=== PATIENT | female | born 1985 | race African-American/Black ===

== ENCOUNTER 2016-08-19 22:39 | Emergency (ER) | payer OTHER ==
[~2016-08-19] VITALS: Ht 172.7 cm; Wt 95.5 kg
[2016-08-20] MEDS ORDERED: ACETAMINOPHEN 500 MG TABLET PO ONE (01:45)
[2016-08-20] MEDS ORDERED: CefTRIAXone SODIUM 1 GM/VIAL IM ONE (01:45)
[2016-08-20] MEDS ORDERED: LIDOCAINE HCL/PF 1% 2 ML VIAL IM ONE (01:45)
[2016-08-20 01:53] VITALS: BP 129/89
== END 2016-08-20 02:01 | disposition home or self-care (01) ==
LOC: EMS 22:41
DX: N61.0 Mastitis without abscess (principal)
CPT/HCPCS: 81025; 96372; 99284; J0696; J3490

== ENCOUNTER 2017-12-29 14:30 | Observation (INO) | payer OTHER ==
[~2017-12-29] VITALS: Ht 170.2 cm; Wt 94.3 kg
[2017-12-29 19:06] VITALS: BP 109/65
[2017-12-29 19:52] LABS: APPEARANCE,URINE CLEAR (CLEAR); BILIRUBIN,URINE NEGATIVE (NEGATIVE); GLUCOSE, URINE (UA) >=1000 mg/dL (NEGATIVE); KETONES,URINE NEGATIVE (NEGATIVE); LEUKOCYTE ESTERASE ,URINE NEGATIVE (NEGATIVE); NITRATE,URINE NEGATIVE (NEGATIVE); OCCULT BLOOD,URINE NEGATIVE (NEGATIVE); PROTEIN,URINE NEGATIVE (NEGATIVE); UROBILINOGEN,URINE 0.2 mg/dL (<=1.0)
[2017-12-29 21:31] LABS: RBC,URINE 0-2 /HPF (0-2)
[2017-12-29 21:32] LABS: BACTERIA,URINE None Seen /HPF (None Seen); SQUAMOUS EPITHELIAL CELL,UR Rare /LPF (None Seen); WBC,URINE None Seen /HPF (0-5)
== END 2017-12-29 20:20 | disposition left against medical advice (07) ==
LOC: 4S 14:30
PROVIDERS: ADMIT Obstetrics & Gynecology; ATTEND Obstetrics & Gynecology
DX: O26.893 Other specified pregnancy related conditions, third trimester (principal); R10.9 Unspecified abdominal pain; Z3A.29 29 weeks gestation of pregnancy
CPT/HCPCS: 59025; 80307 ×8; 81001; G0378

== ENCOUNTER 2022-09-08 07:44 | Emergency (ER) | payer OTHER ==
[~2022-09-08] VITALS: Ht 167.6 cm; Wt 68.0 kg
[2022-09-08 09:07] LABS: GLUCOSE,POINT OF CARE 118 MG/DL (70-110)
[2022-09-08 11:00] VITALS: BP 123/77
[2022-09-08 12:02] LABS: BASOPHILS % (AUTO) 0.8 % (0.0-2.0); EOSINOPHILS % (AUTO) 2.5 % (1.0-6.0); HEMATOCRIT 42.5 % (36-46); LYMPHOCYTES # (AUTO) 3.3 K/uL (1.0-4.8); LYMPHOCYTES % (AUTO) 29.7 % (22.0-44.0); MEAN CORPUSCULAR HEMOGLOBIN 30.8 pg (26.0-34.0); MEAN CORPUSCULAR HGB CONC 32.9 G/dL (31.0-37.0); MEAN CORPUSCULAR VOLUME 94 fL (80-100); MONOCYTES # (AUTO) 0.9 K/uL (0.1-1.0); MONOCYTES % (AUTO) 8.3 % (2.0-9.0); NEUTROPHILS # (AUTO) 6.5 K/uL (1.8-7.7); NEUTROPHILS % (AUTO) 58.7 % (40.0-70.0); PLATELET COUNT (AUTO) 309 K/uL (150-450); RED BLOOD CELL COUNT(AUTO) 4.54 MIL/uL (4.00-5.20); RED CELL DISTRIBUTION WIDTH 13.4 % (11.5-14.5)
[2022-09-08 12:42] LABS: ANION GAP 9 mmol/L (8-16); CALCIUM, TOTAL 9.1 mg/dL (8.8-10.5); CARBON DIOXIDE 25 mmol/L (22-29); CHLORIDE 102 mmol/L (98-107); CREATININE 0.83 mg/dL (0.60-1.30); GLOMERULAR FILTR. RATE CALC > 60 mL/min (>60); GLUCOSE,RANDOM 102 mg/dL (70-110); POTASSIUM 4.1 mmol/L (3.5-5.1); SODIUM SERUM 136 mmol/L (136-145); UREA NITROGEN, BLOOD 12 mg/dL (7-18)
[2022-09-08 12:48] LABS: ALANINE AMINOTRANSFERASE 26 U/L (12-78); ALBUMIN 4.1 g/dL (3.4-5.0); ALKALINE PHOSPHATASE 98 U/L (46-116); ASPARTATE AMINOTRANSFERASE 29 U/L (15-37); BILIRUBIN,TOTAL 0.3 mg/dL (0.1-1.0); TOTAL PROTEIN, SERUM 8.2 g/dL (6.4-8.2)
== END 2022-09-08 12:45 | disposition home or self-care (01) ==
LOC: EMS 07:44
DX: F32.A Depression, unspecified (principal); E11.9 Type 2 diabetes mellitus without complications
CPT/HCPCS: 99284; 80053; 82962; 85025; G0480